=== PATIENT | male | born 1985 | race Two or more races ===

== ENCOUNTER 2020-11-20 04:26 | Emergency (ER) | payer OTHER, MEDICAID ==
[~2020-11-20] VITALS: Ht 177.8 cm; Wt 114.8 kg
[2020-11-20 04:32] VITALS: BP 133/48
--- NOTE | 2020-11-20 05:14 | NUR ---
Call from lab. Rapid covid negative.
== END 2020-11-20 05:33 ==
LOC: ER 04:28 → EDBD 04:28 → ER 05:33
DX: Z04.89 Encounter for examination and observation for other specified reasons (principal); R05 Cough; Z20.822 Contact with and (suspected) exposure to COVID-19
CPT/HCPCS: 87426; 99283; C9803